=== PATIENT | male | born 1980 | race Two or more races ===

== ENCOUNTER 2019-02-20 13:54 | Emergency (ER) | payer SELFPAY ==
[2019-02-20] MEDS ORDERED: TRAM-420 PO (13:58)
--- NOTE | 2019-02-20 14:10 | ER Report ---
History and Physical Time Seen By MD: 14:05 Hx. of Stated Complaint: pt reports he was bit by a prairie dog on R finger HPI/ROS CHIEF COMPLAINT: Animal bite HISTORY OF PRESENT ILLNESS: This is a 38-year-old male who presents to emergency department for dental bite. Patient states that he came in contact with a prairie dog, to get back to his hotel room, the. Bit his finger. Patient came in as he was concerned about the animal bite. He did clean the wound, he will need an updated tetanus. No fever or chills. No nausea or vomiting. No other complaints. REVIEW OF SYSTEMS: Respiratory: No cough, no dyspnea. Cardiovascular: No chest pain, no palpitations. Gastrointestinal: No vomiting, no abdominal pain. Musculoskeletal: No back pain. Integumentary: As above. Allergies: Coded Allergies: No Known Drug Allergies (Unverified , 02/20/19) Home Meds Active Scripts Doxycycline Hyclate (DOXYCYCLINE HYCLATE) 100 Mg Tablet.dr, 100 MG PO BID for 10 Days, #20 TAB 0 Refills Prov:PEDRO PABLO ORDAZ RF MANAGER-BC 02/20/19 Reported Medications Tramadol Hcl (TRAMADOL HCL) 50 Mg Tablet, 50-100 MG PO Q4-6H, TAB 02/20/19 Past Medical/Surgical History The patient has a past medical surgical history of appendectomy, cystectomy, right knee surgery. Reviewed Nurses Notes: Yes Constitutional Vital Sign - Last 24 Hours 02/20/19 02/20/19 13:59 14:26 Temp 98.8 Pulse 85 86 Resp 16 16 B/P (MAP) 129/82 134/72 (92) Pulse Ox 93 94 O2 Delivery Room Air Room Air Physical Exam General Appearance: The patient is alert, has no immediate need for airway protection and no current signs of toxicity. Eyes: Pupils equal and round no injection. Respiratory: Chest is non tender, lungs are clear to auscultation. Cardiac: regular rate and rhythm. Gastrointestinal: Abdomen is soft and non tender, no masses, bowel sounds normal. Musculoskeletal: Neck: Neck is supple and non tender. Extremities have full range of motion and are non tender. Skin: Small bite wound to the right index finger at the DIP, bleeding is controlled, no other concerning findings. Flexion-extension intact, CMS intact. DIFFERENTIAL DIAGNOSIS: After history and physical exam differential diagnosis was considered for animal bite. Medical Decision Making ED Course/Re-evaluation ED Course Patient was admitted to a room. A history and physical were obtained. Differential diagnoses were considered. I did consult with the [facility] lab as noted below, as the patient still has the animal carcass, he will take the carcass over to the lab and they will be was tested for rabies, if the animal is negative for rabies, no need for rabies vaccination, but is positive patient will return to the ER immediately at which time we will start the rabies series. He was also started on doxycycline for prophylactic treatment for plague and tularemia, the that level also test for this however the results will be delayed due to the holiday. The patient expressed understanding, was in agreement with this plan of care and discharged home. 02/20/2019 2:19:46 pm I did speak with the [facility] that lab. Decision to Disposition Date: Feb 20, 2019 Decision to Disposition Time: 14:19 Depart Departure Latest Vital Signs Vital Signs Date Time Temp Pulse Resp B/P (MAP) Pulse Ox O2 Delivery O2 Flow Rate FiO2 02/20/19 14:26 86 16 134/72 (92) 94 Room Air 02/20/19 13:59 98.8 Impression: Primary Impression: Animal bite of finger Condition: Improved Disposition: HOME OR SELF-CARE New Scripts Doxycycline Hyclate (DOXYCYCLINE HYCLATE) 100 Mg Tablet. 100 MG PO BID for 10 Days, #20 TAB 0 Refills Prov: PEDRO PABLO ORDAZ RF MANAGER-BC 02/20/19 Patient Instructions: Animal Bite (ED), Plague (GEN), Rabies (ED), Tularemia (ED) Additional Instructions: [facility] [address] [place] [address] Toll Free: Start the Doxycycline immediately today, they will test for rabies and update you, if it is positive you must return to the ED and we will start you on Rabies medicine. You must take the animal to the [facility] lab as noted above, they can test for plague, tularemia and rabies. You need to bug bomb your car, the primary mode of transmission if flees, this will ensure you do not have any other problems after the disposal of the animal. Monitor the wound closely for infection. Monitor for any other concerning symptoms, if you have any other concerns, please return immediately. Problem Qualifiers Primary Impression: Animal bite of finger Encounter type: initial encounter Qualified Codes: S61.259A - Open bite of unspecified finger without damage to nail, initial encounter PEDRO PABLO ORDAZ RF MANAGER-BC Feb 20, 2019 14:10
[2019-02-20] MEDS ORDERED: DOXY-228 PO (14:21)
[2019-02-20 14:26] VITALS: BP 134/72
[2019-02-20] MEDS ORDERED: DIPHTH/TETANUS/ACEL. PERTUSSIS IM ONLY ONE (14:35)
== END 2019-02-20 14:40 | disposition home or self-care (01) ==
LOC: ER 13:59
DX: S61.254A Open bite of right ring finger without damage to nail, initial encounter (principal); Z23 Encounter for immunization
CPT/HCPCS: 90471; 90715; 99283